=== PATIENT | male | born 1990 | race Caucasian/White ===

== ENCOUNTER 2021-03-14 08:06 | Emergency (ER) | payer BC, SELFPAY ==
--- NOTE | ~2021-03-14 | XR_ITS ---
[XR ribs LT 2V ] INDICATION: Left rib pain after accident TECHNIQUE: Frontal projection of the upper left ribs, frontal projection of the lower left ribs, obli que projection of all the left ribs, frontal inspiratory chest x-ray for interpretation. FINDINGS: There are no displaced rib fractures identified. There are no soft tissue abnormality see n. The lungs are clear. IMPRESSION: 1:No displaced rib fractures. Reviewed, dictated and finalized at location B. PILOT
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
[2021-03-14 08:14] VITALS: BP 109/86; PULSE 83; RESP 16; TEMP 36.7; O2SAT 100
== END 2021-03-14 09:15 | disposition home or self-care (01) ==
PROVIDERS: Emergency Provider Nurse Practitioner; PCP Family Medicine
DX: S20.212A Contusion of left front wall of thorax, initial encounter (principal); V86.95XA Unspecified occupant of 3- or 4- wheeled all-terrain vehicle (ATV) injured in nontraffic accident, initial encounter
CPT/HCPCS: 71100; 99213; G0463

== ENCOUNTER → 2022-06-22 09:56 | Outpatient (CLI) | payer BC, SELFPAY ==
--- NOTE | ~2022-06-22 | CT_ITS ---
CT Facial Bones Clinical Indication: Jaw pain Technique: Contiguous axial scans were obtained through the facial bones followed by coronal and sagi ttal reconstructions. Dose reduction technique was used on this scan by utilizing automated exposure control and iterative reconstruction technique. The dose-length product (DLP) was 327.76 mGy-cm. Findings: Probable chronic nasal bone fractures noted. There is presumed orthopedic hardware present along the mandible. No acute mandibular fracture identified. The visualized paranasal sinuses are xavi ar. Intraorbital soft tissues appear normal. Impression: No acute fracture. Reviewed, dictated and finalized at location . LED TRADES TEACHER Impression: No acute fracture.
== END ==
PROVIDERS: PCP Family Medicine; Visit Provider Nurse Practitioner
DX: R68.84 Jaw pain (principal)
CPT/HCPCS: 70486

== ENCOUNTER 2024-11-20 15:54 | Emergency (ER) | payer OTHER, SELFPAY ==
--- NOTE | ~2024-11-20 | XR_ITS ---
HISTORY: fall 6 days ago. Pain lateral COMPARISON: 03/14/2021 TECHNIQUE: 3 views of the left ribs were performed along with a PA examination of the chest FINDINGS: Cortical irregularity within the left anterior lateral sixth rib margin, likely representing a minima lly displaced left-sided rib fracture. The remaining left ribs are unremarkable Bone mineralization is age-appropriate. The cardiomediastinal silhouette is unremarkable. The lungs are clear. IMPRESSION: Minimally displaced left anterolateral sixth rib fracture, as detailed above. The lungs are clear. Reviewed, dictated and finalized at location A. IMPRESSION: Minimally displaced left anterolateral sixth rib fracture, as deta iled above. The lungs are clear.
--- OUTSIDE RECORDS SUMMARY | 2024-11-20 15:57 | XMS_ITS | Clinical Summary ---
Author Organization [facility] Address [address] [place] [address] Phone Care Team Providers Care Chief Quality Officer Name Role Phone Provider, None Primary Care Provider Unavailabl e Allergies No known active allergies Medications azithromycin (ZITHROMAX) 250 MG Tablet ZPK 9 Active methylPREDNISolo ne (MEDROL) 4 MG Tablet Therapy PackIndications: Acute non-recurrent pansinusitis Use as per instructions on package. 21 Tab 9 Active Active Problems No known active problems Social History Tobacco Use Types Packs/Day Years Used Date Smoking Tobacco: Never Smokeless Tobacco: Current Chew Sex and Gender Information Value Date Recorded Sex Assigned at Not on file Legal Sex Male 7:30 PM CDT Gender Identity Not on file Sexual Orientation Not on file Last Filed Vital Signs Vital Sign Reading Time Taken Comments Blood Pressure 130/68 03/31/2019 9:31 AM PRODUCTION SPECIALIST Pulse 66 03/31/2019 9:31 AM PRODUCTION SPECIALIST Temperature 36.8 C (98.2 F) 03/31/2019 9:31 AM PRODUCTION SPECIALIST Respiratory Rate 18 03/31/2019 9:31 AM PRODUCTION SPECIALIST Oxygen Saturation 98% 03/31/2019 9:31 AM PRODUCTION SPECIALIST Inhaled Oxygen Concentration - - Weight 72.6 kg (160 lb) 03/31/2019 9:31 AM PRODUCTION SPECIALIST Height - - Body Mass Index - - Plan of Treatment Health Maintenance Due Date Last Done Comments Hepatitis C Virus (HCV) Screening 1989 TdaP Immunization 1989 Hepatitis B Immunization (1 of 3 - 19+ 3-dose series) 01/08/2008 Human Papillomavirus (HPV) Immunization (1 - 3-dose SCDM series) 01/08/2016 SARS-COV-2 Immunization (2023- season) 2023 04/15/2021, 07/25/2020, 07/04/2020 Influenza Immunization (#1) 2024 Respiratory Syncytial Virus (RSV) Immunization (Adult) (1 - 1-dose 75+ series) 01/08/2064 Meningococcal Immunization (ACWY) Aged Out No longer eligible b ased on patient's age to complete this topic Pneumococcal Immunization Combined Aged Out No longer eligible b ased on patient's age to complete this topic Rotavirus Immunization Aged Out No lo nger eligible based on patient's age to complete this topic Care Teams Chief Quality Officer Relationship Specialty Start Date End Date Provider, None [place] PCP - General 03/31/19
--- OUTSIDE RECORDS SUMMARY | 2024-11-20 15:57 | XMS_ITS | Clinical Summary ---
Author Organization [facility] Address [address] [place] [address] Care Team Providers Care [employer]ers [employer] Salesperson Name Role Phone Lubna Ordaz MD Primary Care Provider Allergies No known active allergies Medications ibuprofen (ADVIL,MOTRIN) 800 mg tablet Take 1 tablet (800 mg total) by mouth 3 (three) times a day As directed for pain and swelling. 21 tablet 0 Active chlorhexidine (PERIDEX) 0.12 % solution Apply 15 mL to the mouth or throat 4 (four) times a day (with meals and nightly) 473 mL 0 Active cyclobenzaprine (FLEXERIL) 5 mg tabletIndications :Jaw pain Take 1 tablet (5 mg total) by mouth 3 (three) times a day as needed for muscle spasms 15 tablet 3 Active fluticasone propionate (FLONASE) 50 mcg/actuation nasal sprayIndications: Acute non-recurrent pansinusitis Administer 2 sprays into each nostril daily 3 each 4 4 Active Active Problems Problem Noted Date Diagnosed Date Closed fracture of body of mandible with routine healing 05/22/2019 Closed fracture of angle of mandible with routin e healing 05/13/2019 Overview (05/13/2019): Added automatically from request for surgery [id number] Closed fracture of left mandibular angle 020 Cutaneous abscess 10/13/2015 Overview (07/21/2016): Abscess of skin Eczema 08/30/2013 Overview (07/22/2016): Eczema Immunizations Immunization Administration Dates Next Due DTP 11/25/1993, 1,1989,05/21,1989 DTP / HiB 03/16/1990 Hep B, Adolescent or Pediatric 01/17/1997,1996,07/15/1996 Influenza, Trivalent, IM (MDV) 02/03/2011 Influenza, Trivalent, Preser vative Free, Intramuscular 12/02/2013 MMR 09/22/1994,04/10/1990 OPV 11/25/1993, 1,1989,03/19 Td, adsorbed 10/27/2003 Surgical History Surgery Date Site/Laterality Comments OTHER SURGICAL HISTORY cyst removed upper arm -2010: Dr Leach WISDOM TOOTH EXTRACTION 04/16/2009 - 04/15/2010 COLONOSCOPY Medical History Medical History Date Comments Hx Other Medical cyst removed up per arm ; Laterality: left Family History Medical History Relation Name Comments No Known Problems Father Lung cancer Maternal Grandfather Cancer -lung; No Known Problems Mother Other Neg Hx No history of D iabetes mellitus; Relation Name Status Comments Father Maternal Grandfather Mother Social History Tobacco Use Types Packs/Day Years Used Date Smoking Tobacco: Former Cigarettes 0.1 2 2 018 - 04/14/2019 Smokeless Tobacco: Former Snuff Quit: 04/14/2019 Alcohol Use Standard Drinks/Week Comments Yes 3 (1 standard drink = 0.6 oz pur e alcohol) social Sex and Gender Information Value Date Recorded Sex Assigned at Not on file Legal Sex Male 8:35 PM SCRAP PILER Gender Identity Not on file Sexual Orientation Not on file Obstetrics History Last Filed Vital Signs Vital Sign Reading Time Taken Comments Blood Pressure 130/86 03/03/2024 3:30 PM SCRAP PILER Pulse 88 03/03/2024 3:30 PM SCRAP PILER Temperature 37.2 C (98.9 F) 03/03/2024 3:30 PM SCRAP PILER Respiratory Rate 16 03/03/2024 3:30 PM SCRAP PILER Oxygen Saturation 97% 03/03/2024 3:30 PM SCRAP PILER Inhaled Oxygen Concentration - - Weight 70.3 kg (155 lb) 03/03/2024 3:30 PM SCRAP PILER Height 167.6 cm (5' 6) 03/03/2024 3:30 PM SCRAP PILER Body Mass Index 25.02 03/03/2024 3:30 PM SCRAP PILER Plan of Treatment Health Maintenance Due Date Last Done Comments Depression Screening 1989 Hepatitis C Screening 1989 Varicella Vaccines (1 of 2 - 13+ 2-dose series) 2002 DTaP/Tdap/Td Vaccine (6 - Tdap) 10/28/2003 10/27/2003, 11/25/1993, 07/25/1990, Additional history exists Regular Well Visit/Exam 18-64 2007 HPV Vaccines (1 - 3-dose SCDM series) 01/08/2016 Influenza Vaccine (#1) 2024 8, 12/02/2013, 02/03/2011 Hepatitis B Screening Completed 01/17/1997 , 08/16/1996, 07/15/1996 Pneumococcal vaccine <65 Aged Out No longer eligible based on patient's age to complete this topic Medical Devices Implanted Type Area Rotating Field Assembler Device Identifier Shelf Expiration Date Model / Serial / Lot [place] Craniomaxillofacial [id number] Hole Maxillofacial; Left Prebent Plate Bone Titanium - S0 - [id number] Implanted:Qty: 1 on 05/16/2019 by Ana Weber MD at [facility] Plate N/A: Mandible Mandy Craniomaxillofacial [id number] / 0 / Mandy Craniomaxillofacial [id number] Smart Lock Leibinger Adkins 2 1mm 6 Hole Mandible Mini - S0 - [id number] Implanted:Qty: 1 on 05/16/2019 by Ana Weber MD at [facility] Plate N/A: Mandible Mandy Craniomaxillofacial [id number] / 0 / [place] Craniomaxillofacial [id number] 1.5mm 6 Hole Cranial Mini Plate Bone - S0 - [id number] Implanted:Qty: 1 on 05/16/2019 by Ana Weber MD at [facility] Plate N/A: Mandible [place] Craniomaxillofacial [id number] / 0 / [place] Craniomaxillofacial [id number] Leibinger Adkins 2 2.7mm 5mm Self Tap Cross Pin Maxillofacial - S0 - [id number] Implanted:Qty: 1 on 05/16/2019 by Ana Weber MD at [facility] Screw N/A: Mandible [place] Craniomaxillofacial [id number] / 0 / [place] Craniomaxillofacial [id number] Leibinger Adkins 2 2mm 10mm Lock Cross Pin Maxillofacial Screw - S0 - [id number] Implanted:Qty: 3 on 05/16/2019 by Ana Weber MD at [facility] Screw N/A: Mandible Mandy Craniomaxillofacial [id number] / 0 / Mandy Craniomaxillofacial [id number] Leibinger Adkins 2 2mm 12mm Lock Cross Pin Maxillofacial Screw - S0 - [id number] Implanted:Qty: 2 on 05/16/2019 by Ana Weber MD at [facility] Screw N/A: Mandible Mandy Craniomaxillofacial [id number] / 0 / Mandy Craniomaxillofacial 50- Leibinger Adkins 2 2mm 5mm Self Tap Cross Pin Maxillofacial - S0 - [id number] Implanted:Qty: 4 on 05/16/2019 by Ana Weber MD at [facility] Screw N/A: Mandible [place] Craniomaxillofacial [id number] / 0 / [place] Craniomaxillofacial [id number] Leibinger Adkins 2 2.3mm 6mm Self Tap Cross Pin Maxillofacial - [id number] Implanted:Qty: 2 on 05/16/2019 by Ana Weber MD at [facility] N/A: Mandible [place] Craniomaxillofacial [id number] / / Explanted Type Area Rotating Field Assembler Device Identifier Shelf Expiration Date Model / Serial / Lot Mandy Craniomaxillofacial 50- Leibinger Adkins 2 Mmf 2mm 8mm Self Drill Cross Pin Ligature - S0 - [id number] Explanted:Qty: 6 on 05/16/2019 by Ana Weber MD at [facility] Screw N/A: Mandible Mandy Craniomaxillofacial 50 8 / 0 / [employer] [id number] Ethi-Pack 18in Monofilament Ties 12 Strand Precut 4 Suture - [id number] Explanted:Qty: 1 on 05/16/2019 at [facility] N/A: Mandible [employer] [id number] / / Insurance flipClass [facility] Care Teams Trailers And [employer] Salesperson Relationship Specialty Start Date End Date Lubna Ordaz MD PCP - General Family Practice 05/12/19
[2024-11-20 16:06] VITALS: BP 124/91; PULSE 93; RESP 18; TEMP 36.6; O2SAT 99
--- NOTE | 2024-11-20 16:14 | ED.GENADULT ---
HPI - General Adult General Chief complaint: Wound/Laceration Stated complaint: fall Time Seen by Provider: 11/20/24 16:25 Source: patient, RN notes reviewed and old records reviewed Mode of arrival: ambulatory Limitations: no limitations History of Present Illness HPI narrative: 34-year-old male presents to the [facility] with a fall on Sunday, was walking up stairs fell landing on the stairs against his ribs. Tenderness to the left lateral ribs. Has previous injury. Has applied ice and taken ibuprofen Related Data Allergies Allergy/AdvReac Type Severity Reaction Status Date / Time No Known Allergies Allergy Verified 11/20/24 16:07 Review of Systems Review of Systems: All systems reviewed & are unremarkable except as noted in HPI and below Constitutional: Constitutional: Reports no additional constitutional complaints ENT: Reports system reviewed and no additional complaints, except as documented Cardiovascular: Cardiovascular: Reports no additional cardiovascular complaints, Denies chest pain and Denies dyspnea Respiratory: Respiratory: Reports no additional respiratory complaints, Denies chest congestion, Denies cough and Denies dyspnea Musculoskeletal: Musculoskeletal: Reports as per HPI Integumentary/Breasts: Skin/Breast: Reports system reviewed and no additional complaints, except as docu PMFSH Past Medical History Medical History Migraines Allergies Surgical History Surgical History History of mandibular surgery (~2020) Family History Family History Other Alcoholism Family history of malignant neoplasm Social History Social History Smoking packs per day: 0.25 Smoking cigarettes per day: 5.0 Smoking status: Former smoker Smoking end date: 04/16/22 Alcohol intake: current Alcohol use details: drinks 1-2 glasses of whiskey every other day Substance use type: does not use Lack of Transportation: No Lack of Food: Never True Current Housing: I Have Housing Concerned About Future Housing: No Difficulty Paying Gas/Electric Bills: No Difficulty Paying for Meds: No Currently Unemployed: No Education: High School Diploma/GED Difficulty w/ Childcare or Family Care: No Comments At the time of my signature, I reviewed and agree with the nursing past medical, surgical, social, and family history. There is no relevant family history pertinent to the patient complaint. Exam Const: General: cooperative, healthy appearing, comfortable, no acute distress, well developed, alert and well nourished Nutritional Appearance: well nourished Orientation/consciousness: patient oriented x3 Limitations: no limitations HENMT: Head: normal to inspection Eyes: General: appearance normal, both eyes and all related structures Alignment and Position: alignment normal Neck: Neck: normal visual inspection, full ROM, no lymphadenopathy and no meningeal signs Chest: Chest palpation & inspection: normal inspection of the chest Chest/axillae images:  1. Reports tenderness to palpation, deep breathing and movement. No erythema, ecchymosis noted. Older bruising noted posterior to the area Resp: Effort & Inspection: normal respiratory effort and able to speak in complete sentences Auscultation: clear to auscultation bilaterally, no crackles, no rales, no rhonchi and no wheezes Cardio: Rate: regular rate Skin: General skin exam: normal color and no rashes or lesions noted Neuro: General: patient oriented x3, gait normal, moves all extremities and no meningeal signs Cognition (Neuro): normal cognition Speech: normal speech Gait exam (Neuro): Normal gait present Extrem: General: normal to inspection, full ROM, capillary refill normal and normal gait Psych: Appearance: grossly normal and well kempt Mental Status: mental status grossly normal Speech and movement: Normal speech and movement present and Clear speech present Affect: normal affect Attitude: cooperative Course Course Level of Care: Express Care Visit Vital Signs Vital signs: Vital Signs Temperature 97.9 F 11/20/24 16:06 Pulse Rate 93 11/20/24 16:06 Respiratory Rate 18 11/20/24 16:06 Blood Pressure 124/91 H 11/20/24 16:06 Pulse Oximetry 99 11/20/24 16:06 Oxygen Delivery Room Air 11/20/24 16:06 Temperature 97.9 F 11/20/24 16:06 Pulse Rate 93 11/20/24 16:06 Respiratory Rate 18 11/20/24 16:06 Blood Pressure 124/91 H 11/20/24 16:06 Pulse Oximetry 99 11/20/24 16:06 Oxygen Delivery Room Air 11/20/24 16:06 Reviewed Medical Decision Making MDM Narrative Medical decision making narrative: Patient sitting comfortably in exam room. Nontoxic, vitals stable. Patient in no acute distress Patient presents for left rib pain for 5 days. X-ray showed 6th rib fracture, will treat with muscle relaxer, anti-inflammatory and incentive spirometer Patient appropriate for outpatient treatment with close follow-up Discharge instructions reviewed with patient, as well as provided in writing per nursing staff. The instructions also include specific and strict return/GO TO THE ER as well as f/u information. All questions have been answered, and the patient deny any further questions with discharge and discharge plan. Some parts of this dictation were generated by voice recognition software and may contain typographical and/or grammatical inaccuracies. Differential Diagnosis Differential Diagnosis: Rib fracture rib contusion Medical Records Medical records reviewed: Yes I reviewed the external patient's medical records. Vital Signs Vital Signs: Vital Signs Temperature 97.9 F 11/20/24 16:06 Pulse Rate 93 11/20/24 16:06 Respiratory Rate 18 11/20/24 16:06 Blood Pressure 124/91 H 11/20/24 16:06 Pulse Oximetry 99 11/20/24 16:06 Oxygen Delivery Room Air 11/20/24 16:06 Temperature 97.9 F 11/20/24 16:06 Pulse Rate 93 11/20/24 16:06 Respiratory Rate 18 11/20/24 16:06 Blood Pressure 124/91 H 11/20/24 16:06 Pulse Oximetry 99 11/20/24 16:06 Oxygen Delivery Room Air 11/20/24 16:06 Reviewed Lab Data Lab results reviewed: Yes I reviewed the patient's lab results. Labs: Reviewed Imaging Data Radiologist's impression: HISTORY: fall 6 days ago. Pain lateral COMPARISON: 03/14/2021 TECHNIQUE: 3 views of the left ribs were performed along with a PA examination of the chest FINDINGS: Cortical irregularity within the left anterior lateral sixth rib margin, likely representing a minimally displaced left-sided rib fracture. The remaining left ribs are unremarkable Bone mineralization is age-appropriate. The cardiomediastinal silhouette is unremarkable. The lungs are clear. IMPRESSION: Minimally displaced left anterolateral sixth rib fracture, as detailed above. The lungs are clear. Critical Care Time Critical Care Time Critical Care Time: No Discharge Plan Discharge Clinical Impression: Closed rib fracture Qualifiers: Encounter type: initial encounter Rib fracture type: single rib Laterality: left Qualified Code(s): S22.32XA - Fracture of one rib, left side, initial encounter for closed fracture Patient Disposition: Home Condition: Stable Instructions: Rib Fracture (ED) Additional Instructions: Use the incentive spirometer 10 times per hour while awake. Deep breathing is extremely important for the healing process No heavy lifting pushing or pulling Follow-up with primary care provider Apply ice every 2-3 hours for 15-20 minutes while awake. For new or worsening symptoms go directly to the emergency room Patient Language: East Timorese Prescriptions: New baclofen 10 mg tablet 10 mg PO TID PRN (Reason: muscle pain) Qty: 15 0RF ibuprofen 600 mg tablet 600 mg PO TID PRN (Reason: fever or pain) Qty: 30 0RF Follow-up/Referrals: Rachel Ordaz MD [Primary Care Provider] - Stand Alone Forms: Work/School Release IP Time of Disposition: 17:15
== END 2024-11-20 17:19 | disposition home or self-care (01) ==
PROVIDERS: Emergency Provider Nurse Practitioner; PCP Family Medicine
DX: S22.32XA Fracture of one rib, left side, initial encounter for closed fracture (principal); W10.9XXA Fall (on) (from) unspecified stairs and steps, initial encounter; Z87.891 Personal history of nicotine dependence
CPT/HCPCS: 71101; 99213; G0463